=== PATIENT | male | born 1985 | race Two or more races ===

== ENCOUNTER → 2019-02-10 | Day surgery (SDC) | payer OTHER ==
[~2019-02-10] MED LIST: IV RINGERS,LACTATED 1000ML 1,000 ML IV SCH; LIDOCAINE 2% PF 5 ML VIAL. ONE; OMEP20TA8 PO; PROPOFOL 20 ML IV ONE; SUCR1TAB35 PO
[2019-02-10 13:25] VITALS: BP 123/73
--- NOTE | 2019-02-11 12:06 | PATHOLOGY ---
[facility] Accession Number: [id number] . 01 Material submitted: . stomach - GASTRIC BIOPSY FOR H-PYLORI . 01 Clinical history: . Abdominal pain . 02 Diagnosis: Gastric biopsies: - Mild superficial chronic gastritis. (JPM:[facility] 02/11/2019) P/02/11/2019 . 02 Comment: Sections of the gastric biopsy reveal segments of gastric body mucosa showing congestion and mild superficial chronic inflammation. There is a single lymphoid aggregate present within the base of the mucosa. A properly controlled immunoperoxidase stain for Helicobacter is negative for Helicobacter organisms. There is no evidence of malignancy. (JPM:[facility] 02/11/2019) . Special stain performed: Immunoperoxidase for Helicobacter . 02 Electronically signed: . Cruzito Lara MD, Pathologist NPI- [id number] . 01 Gross description: . Received in formalin labeled "Alexandr Castillo, gastric BX for H. pylori," are 3 segments of ortiz soft tissue measuring 1.2 x 1.0 x 0.3 cm in aggregate dimensions and ranging from 0.4 to 0.5 cm in maximum dimension. The specimen is submitted entirely in cassette A1. (TSD; 02/10/2019) TOB/TOB . 02 Pathologist provided ICD-10: K29.30 . 02 CPT . 838186, [id number] Specimen Comment: A courtesy copy of this report has been sent to Specimen Comment: [phone], . Specimen Comment: Report sent to / DR GRIGGS Performed at: [address], [place], [place] [id number] MD Robert Combs MD Phone: [phone] Performed at: 02 [facility] [address] [place], [place] [id number] MD Cruzito Lara MD Phone: [phone]
== END ==
LOC: ENDOS 11:30
PROVIDERS: ATTEND Internal Medicine Gastroenterology
DX: K29.50 Unspecified chronic gastritis without bleeding (principal); F15.90 Other stimulant use, unspecified, uncomplicated; Z88.0 Allergy status to penicillin; Z88.8 Allergy status to other drugs, medicaments and biological substances; Z72.89 Other problems related to lifestyle; Z87.891 Personal history of nicotine dependence
CPT/HCPCS: 43239; 88305; 88342; J2001; J2704